=== PATIENT | male | born 1990 | race Caucasian/White ===

== ENCOUNTER 2020-11-05 20:46 | Emergency (ER) | payer MEDICAID ==
[~2020-11-05] VITALS: Ht 180.3 cm; Wt 83.9 kg
[2020-11-05 20:56] VITALS: Ht 180.3 cm; Wt 83.9 kg
[2020-11-05 21:37] LABS: microscopic required? NO
[2020-11-05 21:42] LABS: urine erythrocyte NEGATIVE (NEGATIVE)
[2020-11-05 21:44] LABS: BASOPHIL % 0.1 % (0.2-1.5); PLATELET COUNT 259 x10^3mcL (152-348); RED CELL DISTRIBUTION WIDTH 13.6 % (12.1-16.2)
[2020-11-05 21:50] LABS: CALCIUM 9.1 mg/dL (8.5-10.1); CARBON DIOXIDE 30.8 mmol/L (21-32); CHLORIDE SERUM 97 mmol/L (98-107); CREATININE SERUM 0.8 mg/dL (0.7-1.3); GFR1 > 60 mL/min; GLUCOSE SERUM 123 mg/dL (74-106); POTASSIUM SERUM 3.3 mmol/L (3.5-5.1); SODIUM SERUM 138 mmol/L (136-145)
[2020-11-05 21:55] LABS: ALBUMIN 3.6 g/dL (3.4-5.0); ALKALINE PHOSPHATASE 91 U/L (46-116); ALT/SGPT 56 U/L (16-63); AST/SGOT 26 U/L (15-37); BILIRUBIN TOTAL 0.3 mg/dL (0.20-1.00); TOTAL PROTEIN, SERUM 7.5 g/dL (6.4-8.2)
[2020-11-05 21:57] LABS: AMPHETAMINE QUAL UR POSITIVE (See below)
[2020-11-06 00:57] VITALS: BP 160/78
== END 2020-11-06 00:57 | disposition left against medical advice (07) ==
LOC: ED 20:46
PROVIDERS: Emergency Medicine
DX: R07.89 Other chest pain (principal); R00.0 Tachycardia, unspecified; R53.83 Other fatigue; R11.0 Nausea; R42 Dizziness and giddiness
CPT/HCPCS: J2060; J7030